=== PATIENT | male | born 1960 | race Caucasian/White ===

== ENCOUNTER 2016-06-29 22:15 | Emergency (ER) | payer SELFPAY ==
[~2016-06-29] VITALS: Ht 185.4 cm; Wt 105.7 kg
[2016-06-29 22:46] VITALS: BP 127/85
[2016-06-29] MEDS ORDERED: TDAP [DIPH/PERTUSSIS/TET] 0.5 ML VIAL IM ONE ×2 (23:03→23:30)
[2016-06-29] MEDS ORDERED: SULFAMETH/TRIMETH 800/160 MG 1 UDTAB TABLET PO ONE ×2 (23:03→23:30)
[2016-06-29] MEDS ORDERED: CEPHALEXIN MONOHYDRATE 500 MG CAPSULE PO ONE ×2 (23:03→23:30)
== END 2016-06-29 23:18 | disposition home or self-care (01) ==
LOC: ER 22:15
DX: L03.011 Cellulitis of right finger (principal); I10 Essential (primary) hypertension; F10.20 Alcohol dependence, uncomplicated; F17.210 Nicotine dependence, cigarettes, uncomplicated
CPT/HCPCS: 90471; 90715; 99283; 99406; A4606; Z7610